=== PATIENT | female | born 1960 | race Asian ===

== ENCOUNTER 2021-06-09 10:40 | Inpatient (IN) | payer OTHER ==
[~2021-06-09] VITALS: Ht 157.5 cm; Wt 54.0 kg
[2021-06-09] MEDS ORDERED: SODIUM CHLORIDE 0.9% 1,000 ML IV ONE (11:00)
[2021-06-09 11:09] LABS: Basophils # (auto) 0 10 ^3/uL (0-0.2); Basophils % (auto) 0.6 % (0.0-2.0); Eosinophils # (auto) 0 10 ^3/uL (0-0.8); Eosinophils % (auto) 0.2 % (0.0-7.0); Hematocrit 43.6 % (36.0-46.0); Hemoglobin 14.6 g/dL (12.2-16.2); Lymphocytes # (auto) 1.1 10 ^3/uL (0.4-5.4); Lymphocytes % (auto) 23.4 % (10.0-50.0); Mean Corpuscular Hemoglobin 30.5 pg (28.0-32.0); Mean Corpuscular Hgb Conc. 33.5 g/dL (32.0-36.0); Mean Corpuscular Volume 91.1 fL (80.0-100.0); Monocytes # (auto) 0.4 10 ^3/uL (0-1.3); Monocytes % (auto) 8.2 % (0.0-12.0); Neutrophils # (auto) 3.2 10 ^3/uL (1.6-8.6); Neutrophils % (auto) 67.6 % (37.0-80.0); Nucleated Red Blood Cells % 0.1 %; Red Blood Cells 4.79 10^6/uL (4.0-5.20); Red Cell Distribution Width 13.6 % (11.8-14.3); White Blood Cell 4.7 10^3/uL (4.4-10.8)
[2021-06-09 11:35] LABS: Albumin 3.9 g/dL (3.4-5.0); BUN/Creatinine Ratio 15.7; Calcium 9.1 mg/dL (8.5-10.1); Potassium 3.6 mmol/L (3.5-5.1)
[2021-06-09 11:38] LABS: Bilirubin, Total 0.4 mg/dL (0.2-1.0); Total Protein 7.5 g/dL (6.4-8.2)
[2021-06-09 12:39] LABS: Urine Bacteria FEW /hpf (None Seen); Urine Blood Negative /uL (Negative); Urine Mucus FEW (None Seen); Urine Specific Gravity 1.029 (1.001-1.035); Urine WBC 2 /hpf (0 - 5)
[2021-06-09] MEDS ORDERED: IOHEXOL 300 MG/ML 100ML BOTTLE IJ ONE ×2 (13:25→13:41)
[2021-06-09] MEDS ORDERED: LABETALOL HCL 5 MG/ML 4ML SYRINGE IV ONE (13:30)
[2021-06-09] MEDS ORDERED: NIFEdipine ER 30 MG TAB PO ONE (13:30)
[2021-06-09] MEDS ORDERED: METOPROLOL SUCCINATE XL 50 MG TAB PO ONE (13:30)
[2021-06-09] MEDS ORDERED: ASPirin 81 mg TAB PO ONE (13:30)
[2021-06-09] MEDS ORDERED: hydrALAZINE HCL 20 MG/ML VL IV PRN (13:30)
[2021-06-09] MEDS ORDERED: LABETALOL HCL 5 MG/ML 4ML SYRINGE IV PRN (13:30)
[2021-06-09] MEDS ORDERED: MORPHINE SULFATE INJECTION 2 MG/ML SYRG IV PRN ×2 (14:00→18:00)
[2021-06-09] MEDS ORDERED: NITROGLYCERIN 0.4 MG SL TAB SL PRN (14:00)
[2021-06-09] MEDS ORDERED: ATORVASTATIN 20 MG TAB PO ONE (14:30)
[2021-06-09] MEDS ORDERED: PRAZOSIN HCL 1 MG CAP PO ONE (14:45)
[2021-06-09] MEDS: LACTATED RINGER'S 1,000 ML IV SCH ×2 (16:10→18:29)
[2021-06-09] MEDS ORDERED: FAMOTIDINE (10MG/ML) 2ML VL IV ONE (18:00)
[2021-06-09] MEDS ORDERED: HYDROcodone-ACET 5/325MG TAB PO ONE (18:00)
[2021-06-09] MEDS ORDERED: ONDANSETRON HCL 4 MG/2 ML VIAL IV PRN (18:00)
[2021-06-09] MEDS ORDERED: DOCUSATE SOD 100 MG CAP PO PRN (18:00)
[2021-06-09] MEDS ORDERED: HYDROcodone-ACET 5/325MG TAB PO PRN (18:00)
[2021-06-09] MEDS ORDERED: ACETAMINOPHEN 325 MG TAB PO PRN (18:00)
[2021-06-09] MEDS ORDERED: LACTULOSE 20Gm/30ML SOLN PO PRN (18:00)
[2021-06-09] MEDS ORDERED: LORazepam 0.5 MG TAB PO PRN (18:00)
[2021-06-09 18:30] VITALS: BP 135/87
[2021-06-09 20:45] LABS: Magnesium 2.1 mg/dL (1.6-2.6); Phosphorus 3.4 mg/dL (2.5-4.90)
[2021-06-09 20:46] LABS: INR 1.01 (0.9-1.15); Partial Thromboplastin Time 28.8 sec (23.6-33.0)
[2021-06-09 22:00] VITALS: BP 122/84
[2021-06-09] MEDS ORDERED: ATORVASTATIN 20 MG TAB PO SCH (22:00)
[2021-06-09] MEDS ORDERED: METOPROLOL TARTRATE 25 MG TAB PO SCH (22:00)
[2021-06-10 02:28] LABS: Alcohol, Urine < 3.0 mg/dL (0-10); Amphetamine Screen, Urine NEGATIVE (NEGATIVE); Barbiturate Scree,Urine NEGATIVE (NEGATIVE); Benzodiazephine Screen, Urine NEGATIVE (NEGATIVE); Cannabinoid Screen, Urine NEGATIVE (NEGATIVE); Cocaine Screen, Urine NEGATIVE (NEGATIVE); Opiate Scree,Urine NEGATIVE (NEGATIVE); Phencyclidine Screen, Urine NEGATIVE (NEGATIVE)
[2021-06-10 02:29] LABS: Urine Bacteria FEW /hpf (None Seen); Urine Blood Negative /uL (Negative); Urine Specific Gravity 1.027 (1.001-1.035); Urine WBC 1 /hpf (0 - 5)
[2021-06-10] MEDS: LACTATED RINGER'S 1,000 ML IV SCH (03:04)
[2021-06-10 05:00] VITALS: BP 129/79
[2021-06-10 06:16] LABS: Basophils # (auto) 0 10 ^3/uL (0-0.2); Basophils % (auto) 0.5 % (0.0-2.0); Eosinophils # (auto) 0.1 10 ^3/uL (0-0.8); Eosinophils % (auto) 1.5 % (0.0-7.0); Hematocrit 39.4 % (36.0-46.0); Hemoglobin 13.2 g/dL (12.2-16.2); Lymphocytes # (auto) 1.2 10 ^3/uL (0.4-5.4); Lymphocytes % (auto) 28.6 % (10.0-50.0); Mean Corpuscular Hemoglobin 30.5 pg (28.0-32.0); Mean Corpuscular Hgb Conc. 33.6 g/dL (32.0-36.0); Mean Corpuscular Volume 90.8 fL (80.0-100.0); Monocytes # (auto) 0.4 10 ^3/uL (0-1.3); Monocytes % (auto) 9.2 % (0.0-12.0); Neutrophils # (auto) 2.6 10 ^3/uL (1.6-8.6); Neutrophils % (auto) 60.2 % (37.0-80.0); Red Blood Cells 4.34 10^6/uL (4.0-5.20); Red Cell Distribution Width 13.2 % (11.8-14.3); White Blood Cell 4.3 10^3/uL (4.4-10.8)
[2021-06-10 06:17] LABS: INR 0.99 (0.9-1.15); Partial Thromboplastin Time 29.5 sec (23.6-33.0)
[2021-06-10 06:50] LABS: Albumin 3.4 g/dL (3.4-5.0); Anion Gap 8 (5-15); Blood Urea Nitrogen 8 mg/dL (7-18); Carbon Dioxide 27 mmol/L (21-32); Chloride 107 mmol/L (98-107); Glucose 112 mg/dL (74-106); Lipase 162 U/L (73-393); Magnesium 2.3 mg/dL (1.6-2.6); Potassium 3.4 mmol/L (3.5-5.1); Sodium 142 mmol/L (136-145)
[2021-06-10 06:52] LABS: Alanine Aminotransferase 28 U/L (13-56); Aspartate Aminotransferase 24 U/L (15-37); BUN/Creatinine Ratio 14.3; GFR African American 142 mL/min; GFR Non-African American 117 mL/min
[2021-06-10 06:55] LABS: Alkaline Phosphatase 49 U/L (45-117); Bilirubin, Total 0.7 mg/dL (0.2-1.0); CRP High Sensitivity < 0.02 mg/dL (< 0.3); Creatine Kinase IFCC 58 U/L (26-192); Phosphorus 3.8 mg/dL (2.5-4.90); Total Protein 6.6 g/dL (6.4-8.2)
[2021-06-10 08:43] LABS: Cholesterol 234 mg/dL (< 200); HDL Cholesterol 68 mg/dL (40-59); LDL Cholesterol 150 mg/dL (< 100); Triglycerides 89 mg/dL (< 150); Uric Acid 2.6 mg/dL (2.6-6.0)
[2021-06-10 09:00] VITALS: BP 141/84
[2021-06-10] MEDS ORDERED: PRAZOSIN HCL 1 MG CAP PO SCH (10:00)
[2021-06-10] MEDS ORDERED: METOPROLOL SUCCINATE XL 50 MG TAB PO SCH (10:00)
[2021-06-10] MEDS ORDERED: FAMOTIDINE (10MG/ML) 2ML VL IV SCH (10:00)
[2021-06-10] MEDS ORDERED: ASPirin 81 mg TAB PO SCH (10:00)
[2021-06-10] MEDS ORDERED: METOPROLOL TARTRATE 25 MG TAB PO SCH (10:00)
[2021-06-10] MEDS ORDERED: ENOXAPARIN SOD 40 MG/0.4 ML SYRINGE SC SCH (10:00)
[2021-06-10] MEDS ORDERED: CHOLECALCIFEROL (VITD3) 2,000 UNIT CAP/TAB PO SCH (10:00)
[2021-06-10] MEDS ORDERED: AMLO-496 PO (11:45)
[2021-06-10 13:00] VITALS: BP 107/66
[2021-06-10 13:02] VITALS: BP 107/66
[2021-06-10] MEDS ORDERED: ATORVASTATIN 20 MG TAB PO SCH (22:00)
[2021-06-11] MEDS ORDERED: PRAZOSIN HCL 1 MG CAP PO SCH (22:00)
[2021-06-12] MEDS ORDERED: PRAZOSIN HCL 1 MG CAP PO SCH (22:00)
[2021-06-13] MEDS ORDERED: PRAZOSIN HCL 1 MG CAP PO SCH (22:00)
== END 2021-06-10 14:20 | disposition home or self-care (01) | DRG 312 ==
LOC: ER 10:40 → TELE 13:51 → TELE-CENTR 18:16
PROVIDERS: ADMIT Hospitalist; ATTEND Internal Medicine
DX: R55 Syncope and collapse (principal); R73.9 Hyperglycemia, unspecified; Z20.822 Contact with and (suspected) exposure to COVID-19; I10 Essential (primary) hypertension; R11.2 Nausea with vomiting, unspecified; R22.1 Localized swelling, mass and lump, neck
CPT/HCPCS: 36415; 70450; 70491; 71045; 80053; 80061; 80307; 81001; 82550; 82728; 83036; 83615; 83690; 83735; 83880; 84100; 84300; 84443; 84484; 84550; 85025; 85379; 85610; 85652; 85730; 86141; 87040; 87086; 87088; 93005; 93886; 96360; G0378; J3490